=== PATIENT | female | born 1940 | race Caucasian/White ===

== ENCOUNTER 2018-06-22 12:07 | Day surgery (SDC) | payer OTHER ==
--- OUTSIDE RECORDS SUMMARY | 2018-06-22 12:12 | XMS REPORT | Continuity of Care Document ---
:1940 Author Organization Interface Problems Problem Status Onset Classification Date Comments Source Date Reported Syncope and Active 01/11/20 Problem 10/20/2015 Data migrated [facility] collapse<sup>2 14 from [facility] </sup> Centricity on 04/01/15. Benign breast Resolved Problem 10/20/2015 [facility] lumps [facility] Chronic Active Problem 10/20/2015 Data migrated [facility] obstructive from [facility] lung Centricity on disease<sup>1< 04/01/15. /sup> Dizziness Resolved Problem 10/20/2015 [facility] Medications Medication Details Route Status Patient Ordering Order Source Instructions Provider Date Allergies, Adverse Reactions, Alerts Substance Category Reaction Severity Reaction Status Date Comments Source type Reported penicillins Assertion Drug Active Data [facility] <sup>1</sup allergy migrated [facility] > from [employer] on 06/01/15. Originally documented as PCN. sulfa Assertion Drug Active Data [facility] drugs<sup>2 allergy migrated [facility] </sup> from [employer] on 06/01/15. Originally documented as SULFA. Immunizations Immunization Date Given Site Status Last Updated Comments Source Results Order Results Value Reference Date Interpretation Comments Source Name Range Chest w Chest w Chest CT with contrast, October 17, 2015. 10/17 - [facility] contrast contrast /2014 - [place] CT CT HISTORY: 75-year-old female with anorexia. Recent chest radiographs have shown a nodule in the right upper lobe which has become more conspicuous which prompted this chest CT. Read by: Linda Anaya MD Dictated Date/time: 10/17/15 19:48 Electronically Signed by: Linda Anaya MD 10/17/15 20:13 FINAL REPORT TECHNIQUE: The chest was scanned at 1.25 mm thin slices following the intravenous administration of 100 cc Omnipaque 300 contrast, with coronal, sagittal, and axial MIP reformatted images provided. Grant elation is made with the recent chest radiograph from October 10, 2015. FINDINGS: The heart is not enlarged. There is a trace dependent pericardial effusion. Mixed atherosclerotic plaque is scattered throughout the thoracic aorta and extends into the left subclavian artery which is s lightly narrowed beyond its takeoff from the aortic arch. The ascending aorta and pulmonary trunk do not measure enlarged. Calcification is identified in the LAD coronary artery. Note is made of subcentimeter mediastinal and hilar lymph nodes. Limited imaging through the upper abdomen shows abundant mixed atherosclerotic plaque with ulcerative lesions in the abdominal aorta. On the lowermost slices, the abdominal aorta is ectatic measuring up to 26 mm but is incompletely included on this study. The solid organs of the upper abdomen are not otherwise adequately opacified to appropriately assess. There is abundant centrilobular emphysema with an upper lung predilection. There is a spiculated, bilobed mass in the right upper lobe seen on axial images 51-70 and well seen on sagittal image 51. It m easures a total of 3 cm in length and up to 1.3 cm in transverse dimension as seen on axial image 66 and sagittal image 51. It is located adjacent to a bulla and spiculations from this lesion extends to the pleural surface anteriorly which is tethered. There is abundant biapical scarring. Additional small 2 to 5 mm pulmonary nodules are identified in the right lower lobe on axial image 148 and in the left upper lobe on axial images 31, 36, and 74. No pleural effusions are identified. The bones are demineralized. There are degenerative changes of the thoracic spine with curvature. No definite lytic destructive or blastic skeletal lesions are identified. IMPRESSION: 1. There is a spiculated, bilobed mass in the right upper lobe measuring 3 x 1.3 cm. It is located adjacent to a bulla and is tethered to the anterior pleural space. This is most worrisome for a primary bronchogenic carcinoma and corresponds to the visualized nodule on the recent chest radiograph. Consider further evaluation with tissue sampling and/ or PET/CT. 2. There are a few additional small pulmonary nodules scattered in the lungs bilaterally ranging in size from 2 to 5 mm which are nonspecific. Pulmonary metastases are not excluded. 3. Abundant centrilobular emphysema. 4. Abundant mixed atherosclerotic plaque in the thoracic aorta, left subclavian artery, and involving the incompletely included abdominal aorta. The abdominal aorta is ectatic and contains ulcerative le sions but is incompletely included on this study. Consider further evaluation with dedicated abdomen and pelvis CT as clinically warranted. 5. Calcification of the LAD coronary artery. Chest 2 Chest 2 EXAM: XR CHEST 2 VIEWS 10/10 - [facility] views DX views DX /2014 - [place] DATE: 2015-10-10 16:56:00 Read by: Dasia Aguilera MD Dictated Date/time: 10/11/15 15:18 Electronically Signed by: Dasia Aguilera MD 10/11/15 15:21 FINAL REPORT INDICATION: anorexia COMPARISON: Chest 2 views January 10, 2014 TECHNIQUE: Frontal and lateral chest radiographs DISCUSSION: The linear opacities in the right upper lobe felt to represent scarring on the prior exam are slightly more conspicuous with a questionable nodular appearance overlying the right second ante rior rib. The linear component is slightly more curvilinear when compared the prior exam and an underlying cavity is not excluded. Additional biapical pleural thickening and scarring is noted. Lungs are mildly hyperinflated. The cardiac silhouette is unremarkable. Pectus excavatum deformity. Degenerative changes in the spine. The bones are osteopenic. Pulmonary vascularity is normal. The cardiomediastinal silhouette is unremarkable. No acute bony abnormality is identified. IMPRESSION: The opacities in the right upper lobe felt to represent scarring on the prior exam are slightly more conspicuous on the current exam. An underlying cavity or contiguous area of nodularity is not exclude d. Dedicated chest CT is recommended for better evaluation. Vital Signs Vital Sign Value Date Comments Source Encounters Location Location Encounter Encounter Reason Attending ADM DC Status Source Details Type Number For Provider Date Date Visit [facility] Outpt Diag [id number] [place] 10/10 10/11 [facility] Outpatient Services [facility] Outpt Diag [id number] [place] 10/17 10/18 [facility] Outpatient Services [facility] Outpatient [id number] [place] 11/17 [facility] /2015 [place] [facility] [id number] NOHEMY 01/21 [facility] /2016 [place] Procedures Procedure Code Date Perfomer Comments Source
--- OUTSIDE RECORDS SUMMARY | 2018-06-22 12:12 | XMS REPORT | Summary of Care ---
:1940 Author Organization [facility] Outpatient Imaging - [facility] Address [address] [place] [address]- Encounter HQ Encntr_alitiffanie(FIN) [id number] Date(s): 10/10/15 - 10/10/15 [facility] Outpatient Imaging - [address] [place] [address]- Discharge Disposition: Home Attending Physician: Myles Yanes MD Vital Signs No data available for this section Problem List Condition Effective Dates Status Health Status Informant Benign breast lumps(Confirmed) Resolved Chronic obstructive lung disease1 Active Dizziness(Confirmed) Resolved Syncope and collapse2 01/10/14 Active 1Data migrated from GE [employer] on 04/01/15.2Data migrated from [employer] on 04/01/15. Allergies, Adverse Reactions, Alerts Substance Reaction Severity Status penicillins1 Active sulfa drugs2 Active 1Data migrated from [employer] on 06/01/15. Originally documented as PCN.2Data migrated from [employer] on 06/01/15. Originally documented as SULFA. Medications No data available for this section Results No data available for this section Immunizations No data available for this section Procedures No data available for this section Social History Social History Type Response Substance Abuse Use: None. Exercise Exercise duration: 30. Exercise frequency: 1-2 times/week. Exercise type: Walking. Employment/School Status: Retired. Alcohol Never, Frequency: Daily. Smoking Status Never smoker; Exposure to Tobacco Smoke None; Cigarette Smoking Last 365 Days No; Reg Smoking Cessation Counseling No Assessment and Plan No data available for this section
--- OUTSIDE RECORDS SUMMARY | 2018-06-22 12:12 | XMS REPORT | Summary of Care ---
:1940 Author Organization [facility] Outpatient Imaging - [facility] Address [address] [place] [address]- Encounter HQ Tatontr_alitiffanie(FIN) [id number] Date(s): 10/17/15 - 10/17/15 [facility] Outpatient Imaging - [address] [place] [address]- Discharge Disposition: Home Attending Physician: Myles Yanes [...]
[2018-06-22] MEDS ORDERED: NA CHLORIDE 0.9% 500 ML ONE (12:25)
[2018-06-22] MEDS ORDERED: BUPIVACAINE 0.25% PF 10 ML VIAL ONE (12:26)
[2018-06-22] MEDS ORDERED: TETRACAINE HCL 0.5% 2ML OPTH ONE (12:26)
[2018-06-22] MEDS ORDERED: CYCLOPENTOLATE 1% OPTH 2 ML ONE (12:26)
[2018-06-22] MEDS ORDERED: LIDOCAINE 2% INJ, MPF 2 ML 2 ML ONE (12:27)
[2018-06-22] MEDS ORDERED: PHENYLEPHRINE 10% OPTH 5ML ONE (12:27)
[2018-06-22] MEDS ORDERED: CYCLOPENTOLATE 1% OPTH 2 ML OPTH ONE ×2 (12:39→12:46)
[2018-06-22] MEDS ORDERED: PHENYLEPHRINE 10% OPTH 5ML OPTH ONE ×2 (12:39→12:46)
[2018-06-22] MEDS ORDERED: NS 0.9% VIAL 10 ML ONE (12:39)
[2018-06-22] MEDS: BALANCED SALT IRRIG PLAIN 500 ML BTL IRR ONE ×2 (12:56→13:32)
[2018-06-22] MEDS: EPINEPHRINE/PF 1 MG/ML AMP ONE ×2 (12:56→13:32)
[2018-06-22] MEDS: DUOVISC 1 KIT OPTH ONE ×2 (12:56→13:32)
[2018-06-22] MEDS: MOXIFLOXACIN HCL 10 DROPS/ML **OR USE OPTH ONE ×2 (12:56→13:32)
[2018-06-22] MEDS ORDERED: PROPOFOL 200 MG/20 ML VIAL IV ONE (13:16)
[2018-06-22] MEDS ORDERED: LIDOCAINE 1% MPF 2 ML AMPULE ONE (13:22)
--- NOTE | 2018-06-22 14:11 | P.BOP ---
Preoperative diagnosis: Nuclear sclerosis and posterior subcapsular cataract OD Postoperative diagnosis: Same Primary procedure: Phacoemulsification with IOL OD Estimated blood loss: None Anesthesia: Local (Subtenon's infusion with anesthesia for cataract surgery) Complications: None Implants: [id number] +23.0 Transferred to: Other (Day surgery) Condition: Good
[2018-06-22 14:32] VITALS: BP 148/64; TEMP 97.3; O2SAT 100
--- NOTE | 2018-06-23 00:52 | OP ---
Date of Procedure: 06/22/2018 Surgeon: Thuy Hansen MD Anesthesiologist: Clarisse Ba CRNA and Brody Ellis M.D. Preoperative Diagnosis: Nuclear sclerotic and posterior subcapsular cataract, right eye. Procedure: Phacoemulsification with intraocular lens, right eye. Anesthesia: Per cataract surgery. Complications: None. Description Of Procedure: In day surgery, the patient was prepped with Betadine and draped. A conju nctival incision was made in the inferior nasal quadrant with Joan scissors. A sub-Tenon block c onsisting of a 1:1 mixture of 2% Xylocaine and 0.25% bupivacaine was placed through the conjunctival incision with a blunt cannula. A Honan balloon was placed over the eye and the patient was transferr ed to the operating room. In the operating room the patient was prepped and draped in the usual sterile fashion for ophthalmic surgery. A lid speculum was placed in the OD. Two paracentesis sites were made superiorly and infer iorly in the limbal cornea. Viscoat was placed in the anterior chamber and a crescent blade was used to make a corneal groove and tunnel, and a keratome was used to enter the anterior chamber. Provisc was placed in the anterior chamber and a 360 degree capsulotomy was performed with a cystitome. The lens was hydrodissected with BSS and rotated freely. The lens was removed with a stop and chop tech nique. A 15.84 phaco CDE was used to remove the lens. Residual cortex was removed with the irrigati on and aspiration. Provisc was placed in the capsular bag. A ZCB00 +23.0 diopter lens was placed in the capsular bag without complications. Irrigation and aspiration was used to remove residual visco elastic. The paracentesis sites were hydrated with BSS. The wound and paracentesis sites were inspe cted and found to be watertight. Vigamox 0.07 cc was placed intracamerally at the end of the procedu re. The eye was irrigated with balanced salt solution. The eye was patched with a soft cotton patch and Martel metal shield. The patient was returned to day surgery in good condition. Comments: 1:5000 epinephrine was placed in the eye prior to Viscoat. Discharge Instructions: Ms. Chamorro is discharged to home in good condition and is to follow up with Dr. Hansen in the morning. JOVITA/ROSELIA Voice ID: [id number] Report ID: [id number]
== END 2018-06-22 14:35 | disposition home or self-care (01) ==
LOC: OR 12:07
PROVIDERS: ATTEND Ophthalmology Retina Specialist
PROC: 08RJ3JZ Replacement of Right Lens with Synthetic Substitute, Percutaneous Approach (ICD-10-PCS; principal; 2018-06-22 12:00)
DX: H25.11 Age-related nuclear cataract, right eye (principal); H25.041 Posterior subcapsular polar age-related cataract, right eye; I10 Essential (primary) hypertension; Z87.891 Personal history of nicotine dependence; Z85.118 Personal history of other malignant neoplasm of bronchus and lung; Z92.3 Personal history of irradiation; Z88.0 Allergy status to penicillin; Z88.2 Allergy status to sulfonamides; Z88.6 Allergy status to analgesic agent
CPT/HCPCS: 66984; J0171; J2001; J3490

== ENCOUNTER 2018-09-07 11:06 | Day surgery (SDC) | payer OTHER ==
--- OUTSIDE RECORDS SUMMARY | 2018-09-07 11:09 | XMS REPORT | Continuity of Care Document ---
[...] <sup>1</sup allergy migrated [facility] > from [employer] on 06/01/15. Originally documented as PCN. sulfa Assertion Drug Active Data [facility] drugs<sup>2 allergy migrated [facility] </sup> from [employer] on 06/01/15. Originally documented as SULFA. Immunizations Immunization Date Given Site Status Last Updated Comments Source Results Order Results Value Reference Date Interpretation Comments Source Name Range Chest w Chest w Chest CT with contrast, October 17, 2015. 10/17 - [facility] contrast contrast /2014 - [place] CT CT HISTORY: 75-year-old female with anorexia. [...] [facility] views DX views DX /2014 - [place] DATE: 2015-10-10 16:56:00 Read by: Dasia Aguilera [...] Type Number For Provider Date Date Visit [facility] Outpt Diag [id number] [place] 10/10 10/11 [facility] Outpatient Services [facility] Outpt Diag [id number] [place] 10/17 10/18 [facility] Outpatient Services [facility] Outpatient [id number] [place] 11/17 [facility] /2015 [place] [facility] [id number] NOHEMY 01/21 [facility] /2016 [place] Procedures Procedure Code Date Perfomer Comments Source
[2018-09-07] MEDS ORDERED: NA CHLORIDE 0.9% 500 ML ONE (11:26)
[2018-09-07] MEDS ORDERED: Phenylephrine HCl 10 MG/ML 1 ML VIAL ONE (11:26)
[2018-09-07] MEDS ORDERED: NS 0.9% VIAL 10 ML ONE (11:38)
[2018-09-07] MEDS ORDERED: EPINEPHRINE/PF 1 MG/ML AMP ONE ×2 (11:38→13:54)
[2018-09-07] MEDS ORDERED: BALANCED SALT IRRIG PLAIN 500 ML BTL IRR ONE (11:39)
[2018-09-07] MEDS ORDERED: MOXIFLOXACIN HCL 10 DROPS/ML **OR USE OPTH ONE (11:39)
[2018-09-07] MEDS ORDERED: DUOVISC 1 KIT OPTH ONE (11:39)
[2018-09-07] MEDS: CYCLOPENTOLATE 1% OPTH 2 ML ONE ×3 (11:50→12:00)
[2018-09-07] MEDS: PHENYLEPHRINE 10% OPTH 5ML ONE ×3 (11:50→12:00)
[2018-09-07] MEDS: TETRACAINE HCL 0.5% 2ML OPTH ONE ×2 (11:51→13:04)
[2018-09-07] MEDS: LIDOCAINE 2% MPF 5 ML VIAL ONE ×2 (11:51→13:05)
[2018-09-07] MEDS: BUPIVACAINE 0.25% PF 10 ML VIAL ONE ×2 (11:52→13:05)
[2018-09-07] MEDS ORDERED: LIDOCAINE 1% MPF 5 ML VIAL ONE (12:39)
[2018-09-07] MEDS ORDERED: PROPOFOL 200 MG/20 ML VIAL IV ONE (12:39)
[2018-09-07] MEDS ORDERED: EPINEPHRINE/PF 1 MG/ML AMP IV ONE (13:30)
--- NOTE | 2018-09-07 13:49 | P.BOP ---
Preoperative diagnosis: Nuclear sclerotic cataract OS Postoperative diagnosis: Same Primary procedure: Phacoemulsification with IOL OS Estimated blood loss: None Anesthesia: Local (Subtenon's infusion with anesthesia for cataract surgery) Complications: None Implants: ZCB00 +22.0 Transferred to: Other (Day surgery) Condition: Good
[2018-09-07 13:58] VITALS: BP 126/65; TEMP 97.4; O2SAT 96
--- NOTE | 2018-09-08 00:45 | OP ---
Surgeon: Thuy Hansen MD Anesthesiologist: Clarisse Ramsay CRNA and Tramaine Negrete MD Preoperative Diagnosis: Nuclear sclerotic cataract, left eye. Operation Performed: Phacoemulsification with intraocular lens implant, left eye. Anesthesia: Per Cataract Surgery. Complications: None. Description Of Procedure: In day surgery, the patient was prepped with Betadine and draped. A lid speculum was placed in the left eye. A conjunctival incision was made in the inferior nasal quadrant with Joan scissors. A 1:1 mixture of 2% Xylocaine and 0.25% bupivacaine was placed around the globe. Approximately 5 mL were used. A Honan balloon was placed on the eye for approximately 5 minutes. The patient was brought into the operative room. The patient was prepped and draped in the usual sterile fashion for ophthalmic surgery. A lid speculum was placed in the eye. Paracentesis was made superiorly and inferiorly in the limbal cornea. Viscoat was placed in the anterior chamber. A crescent blade was used to create a tunnel incision in the temporal cornea and a keratome was used to enter the anterior chamber. Provisc was placed in the eye and 360 degree capsulotomy was performed. The lens was hydrodissected with balanced salt solution and moved freely. The lens was removed in a stop and chop fashion. 9.92 CDE was required. Irrigation and aspiration were used to remove residual cortex. Provisc was placed in the eye. A ZCB00 +22.0 diopter lens was placed in the capsular bag without complications. Irrigation and aspiration were used to remove residual viscoelastic. The paracentesis sites were hydrated with balanced salt solution and the wound and paracentesis sites were inspected and found to be watertight. Intracameral Vigamox 0.07 cc was injected at the end of the procedure. The eye was irrigated with balanced salt solution. The eye was patched with a soft cotton patch and Martel metal shield. The patient was returned to day surgery in good condition. Comments: 1:5000 epinephrine was placed in the anterior chamber prior to Viscoat. Discharge Instructions: Ms. Chamorro is discharged to home in good condition and is to follow up with Dr. Hansen in the morning. JOVITA/ROSELIA Voice ID: [id number] Report ID: [id number] ZOYA
== END 2018-09-07 14:15 | disposition home or self-care (01) ==
LOC: OR 11:06
PROVIDERS: ATTEND Ophthalmology Retina Specialist
PROC: 08RK3JZ Replacement of Left Lens with Synthetic Substitute, Percutaneous Approach (ICD-10-PCS; principal; 2018-09-07 11:45)
DX: H25.12 Age-related nuclear cataract, left eye (principal); I10 Essential (primary) hypertension; J44.9 Chronic obstructive pulmonary disease, unspecified; Z85.118 Personal history of other malignant neoplasm of bronchus and lung; Z87.891 Personal history of nicotine dependence; Z88.0 Allergy status to penicillin; Z88.2 Allergy status to sulfonamides; Z88.8 Allergy status to other drugs, medicaments and biological substances; Z91.048 Other nonmedicinal substance allergy status
CPT/HCPCS: 66984; J0171 ×3; J2370; J2704

== ENCOUNTER 2019-01-06 06:55 | Day surgery (SDC) | payer OTHER ==
--- NOTE | 2019-01-05 11:07 | RAD REPORT ---
EXAM DESCRIPTION: Yoselyn De Santiago And Lat (2 Views)01/05/2019 10:57 am CLINICAL HISTORY: Lung cancer. Preop COMPARISON: February 2018 FINDINGS: Right upper lobe dense opacity is without significant change from the prior exam. Remainder of the lungs appear clear The lungs are moderately to markedly hyperaerated consistent with COPD. The heart is normal size IMPRESSION: COPD Right upper lobe dense opacity without significant change from from February 2018
[2019-01-05 11:10] LABS: Absolute Lymphocytes (CBC) 1.2 K/uL (0.7-4.9); Absolute Monocytes 0.6 K/uL (0.1-1.3); Absolute Neutrophil 3.7 K/uL (1.8-8.0); Basophils % 1.2 % (0-1.3); Eosinophils % 4.7 % (0-4.4); Hematocrit 42.8 % (36.0-45.0); Lymphocytes % 20.5 % (15.3-44.8); MPV 9.4 fL (7.6-11.3); Monocytes % 9.9 % (3.3-12.3); RBC Red Blood Cell Count 4.34 M/uL (3.86-4.86)
[2019-01-05 11:17] LABS: Potassium 4.1 mmol/L (3.5-5.1)
[2019-01-05 11:40] LABS: Protime INR 0.96
--- OUTSIDE RECORDS SUMMARY | 2019-01-06 06:57 | XMS REPORT | Continuity of Care Document ---
[...] <sup>1</sup allergy migrated [facility] > from [facility] [employer] on 06/01/15. Originally documented as PCN. sulfa Assertion Drug Active Data [facility] drugs<sup>2 allergy migrated [facility] </sup> from [employer] on 06/01/15. Originally documented as SULFA. Immunizations Immunization Date Given Site Status Last Updated Comments Source Results Order Results Value Reference Date Interpretation Comments Source Name Range Chest w Chest w Chest CT with contrast, October 17, 2015. 10/17 - [facility] contrast contrast /2014 - [place] CT CT HISTORY: 75-year-old female with anorexia. [...] OPID views DX views DX /2014 - [place] DATE: 2015-10-10 16:56:00 Read by: Dasia Aguilera [...] Type Number For Provider Date Date Visit [facility] Outpt Diag [id number] [place] 10/10 10/11 [facility] Outpatient Services [facility] Outpt Diag [id number] [place] 10/17 10/18 [facility] Outpatient Services [facility] Outpatient [id number] [place] 11/17 [facility] /2015 [place] Outpatient [id number] NOHEMY 01/21 [facility] /2016 [place] Procedures Procedure Code Date Perfomer Comments Source
[2019-01-06] MEDS ORDERED: NA CHLORIDE 0.9% 500 ML ONE (07:41)
[2019-01-06] MEDS ORDERED: LIDOCAINE 1% 20 ML MDV ONE ×2 (08:26→09:48)
[2019-01-06] MEDS ORDERED: HEPA 1000U/500MLS 1,000 UNIT/500 ML BAG IV ONE ×2 (08:26→10:15)
[2019-01-06] MEDS ORDERED: FENTANYL CITR 100 MCG/2 ML ONE (09:10)
[2019-01-06] MEDS ORDERED: MIDAZOLAM HCL 2 MG/2 ML INJ ONE (09:10)
[2019-01-06] MEDS ORDERED: HEPARIN 5000 UNIT/ML 1 ML VIAL ONE (09:48)
[2019-01-06] MEDS ORDERED: PRASUGREL (EFFIENT) 10 MG TAB ONE (11:20)
[2019-01-06 13:07] VITALS: TEMP 98
--- NOTE | 2019-01-06 13:50 | OP ---
Surgeon: Ghassan Bazzi MD Primary Care Physician: Tera Majano M.D. Procedure: Abdominal angiogram with runoffs and percutaneous angioplasty of the right iliac artery u sing a stent, which was successful. A 99% right ostial iliac stenosis was dilated to less than 10% s tenosis using a 6.0 x 29 Omnilink balloon expanding stent. Procedure Findings: The patient has a 3 cm diameter abdominal aortic aneurysm. The right iliac is s everely stenotic. The left iliac and femoral arteries are tortuous, diffusely mildly diseased. No s ignificant stenosis. The left superficial femoral artery has diffuse disease in it, up to 80% stenos is. The distal vessels on both sides are free of any significant stenosis and after the angioplasty, the right iliac stenosis was very successfully dilated. It was at the junction of the iliac and dis gayathri aorta. Procedure In Detail: The patient was brought to the cardiac culture media laboratory assistant in a fasting state, prepared, d raped in usual sterile fashion, sedated with Versed and fentanyl. The left femoral artery was entere d first. A needle was used, 4-Mongolian sheath was placed. We were able to put a guidewire into the ao rta and with this we were able to place a pigtail into the aorta for the first angiogram. We then to ok a second angiogram at an angled view that better showed the lesion, very tight, right aortoiliac j unction stenosis, heavily calcified, more than 90% stenosed. We decided it was unable to cross this lesion from the patient's left side, so we entered the right iliac artery. We placed a 6-Mongolian ann th. We were able to cross the lesion with a Terumo Glidewire. We could not pass a stent or even a 4 -Mongolian balloon to pre dilate because of how tight it was. We were able to get a 4-Mongolian coronary a rtery diagnostic catheter to cross the lesion. We then discarded the Glidewire, put an exchange mark th J-wire into the aorta, across the lesion in the right iliac, withdrew the coronary catheter, pre-d ilated the lesion with 4.0 x 40 balloon and inflated to 10 atmospheres. We were then able to pass th e stent, although even then it was difficult, and once the stent was in place, we inflated it to 12 a tmospheres. It took a full 12 atmospheres to dilate it. No complications. Angiographic result was excellent after the wires were removed. Angiograms were done of the left common femoral artery and r ight common femoral artery. The left common femoral artery, we elected to close using manual pressur e. As only a 4-Mongolian device was placed on the right, we closed that arteriotomy using an Angio-Seal device. She will be loaded with Effient 30 mg. She had heparin 5000 units given during the procedu re, and she will take Plavix, aspirin, and Trental as an outpatient. She should also be started on a statin drug. We will like to start her on Lipitor 40 mg a day. CARLIE/ROSELIA Voice ID: [id number] Report ID: [id number]
[2019-01-06 16:13] VITALS: BP 114/64; O2SAT 98
== END 2019-01-06 16:27 | disposition home or self-care (01) ==
LOC: CCL 06:55
PROVIDERS: ATTEND Internal Medicine
DX: I70.203 Unspecified atherosclerosis of native arteries of extremities, bilateral legs (principal); I71.4 Abdominal aortic aneurysm, without rupture; E78.5 Hyperlipidemia, unspecified; I10 Essential (primary) hypertension; I65.23 Occlusion and stenosis of bilateral carotid arteries; F17.211 Nicotine dependence, cigarettes, in remission; Z79.899 Other long term (current) drug therapy
CPT/HCPCS: 85025; 80048; 36415; 85610; 85730; 71046; 36200; 75630; 37221; C1893; C1769; C1725; J1644; J2250; J3010

== ENCOUNTER 2019-08-31 11:29 | Observation (INO) | payer OTHER ==
[2019-08-31 13:54] LABS: Urine Blood NEGATIVE (NEG); Urine Glucose NEGATIVE (NEG)
[2019-08-31 13:54] LABS: Urine Bacteria 20-50 /HPF (<20); Urine Culture Reflex Order REFLEXED; Urine RBC <5 /HPF (NONE SEEN)
[2019-08-31 13:55] LABS: Urine Protein NEGATIVE (NEG); Urine pH 5.5 (5.0-7.0)
--- NOTE | 2019-08-31 14:38 | EDPHYS ---
Physician Documentation [facility] Name: Dot Chamorro Age: 79 yrs Sex: Female : 1940 Arrival Date: 08/31/2019 Time: 11:31 Bed 26 Private MD: Migue Majano C ED Physician Duke Bruno HPI: 08/31 14:29 This 79 yrs old Female presents to ER via Ambulatory with complaints of reginald Urinary Problem, Vomiting. 14:29 The patient presents to the emergency department with nausea. Onset: The reginald symptoms/episode began/occurred 3 day(s) ago. Possible causes: unknown. The symptoms are aggravated by nothing. The symptoms are alleviated by nothing. Associated signs and symptoms: The patient has no apparent associated signs or symptoms. Severity of symptoms: At their worst the symptoms were mild in the emergency department the symptoms are unchanged. The patient has not experienced similar symptoms in the past. Historical: - Allergies: 11:40 PENICILLINS; sv 11:40 Sulfa (Sulfonamide Antibiotics); sv 11:40 Tetanus Vaccines \T\ Toxoid; sv - Home Meds: 11:40 metoprolol tartrate 25 mg Oral tab 1 tab 2 times per day [Active]; furosemide 40 mg sv Oral tab 1 tab once daily [Active]; Ranitidine 1 mg BID Oral [Active]; alendronate sodium-cholecalciferol(vitamin D3) oral 70mg weekly on Tues oral [Active]; aspirin 81 mg Oral chew 1 tab once daily [Active]; calcium-vitamin D3-vitamin K oral oral daily [Active]; nitrofurantoin oral 1 cap BID oral [Active]; - PMHx: 11:40 COPD; Lung Cancer (in remission); UTI; sv - PSHx: 11:40 None; sv - Immunization history:: Flu vaccine is not up to date. - Social history:: Smoking status: unknown. - Family history:: not pertinent. - Ebola Screening: : No symptoms or risks identified at this time. ROS: 14:29 Constitutional: Negative for fever, chills, and weight loss, Eyes: Negative for injury, reginald pain, redness, and discharge, ENT: Negative for injury, pain, and discharge, Neck: Negative for injury, pain, and swelling, Cardiovascular: Negative for chest pain, palpitations, and edema, Respiratory: Negative for shortness of breath, cough, wheezing, and pleuritic chest pain, Abdomen/GI: Negative for abdominal pain, nausea, vomiting, diarrhea, and constipation, Back: Negative for injury and pain, : Negative for injury, bleeding, discharge, and swelling, MS/Extremity: Negative for injury and deformity, Skin: Negative for injury, rash, and discoloration, Psych: Negative for depression, anxiety, suicide ideation, homicidal ideation, and hallucinations, Allergy/Immunology: Negative for hives, rash, and allergies, Endocrine: Negative for neck swelling, polydipsia, polyuria, polyphagia, and marked weight changes, Hematologic/Lymphatic: Negative for swollen nodes, abnormal bleeding, and unusual bruising. 14:29 Neuro: Positive for dizziness, near syncope, weakness. Exam: 14:29 Constitutional: This is a well developed, well nourished patient who is awake, alert, reginald and in no acute distress. Head/Face: Normocephalic, atraumatic. Eyes: Pupils equal round and reactive to light, extra-ocular motions intact. Lids and lashes normal. Conjunctiva and sclera are non-icteric and not injected. Cornea within normal limits. Periorbital areas with no swelling, redness, or edema. ENT: Nares patent. No nasal discharge, no septal abnormalities noted. Tympanic membranes are normal and external auditory canals are clear. Oropharynx with no redness, swelling, or masses, exudates, or evidence of obstruction, uvula midline. Mucous membranes moist. Neck: Trachea midline, no thyromegaly or masses palpated, and no cervical lymphadenopathy. Supple, full range of motion without nuchal rigidity, or vertebral point tenderness. No Meningismus. Chest/axilla: Normal chest wall appearance and motion. Nontender with no deformity. No lesions are appreciated. Cardiovascular: Regular rate and rhythm with a normal S1 and S2. No gallops, murmurs, or rubs. Normal PMI, no JVD. No pulse deficits. Abdomen/GI: Soft, non-tender, with normal bowel sounds. No distension or tympany. No guarding or rebound. No evidence of tenderness throughout. Back: No spinal tenderness. No costovertebral tenderness. Full range of motion. Female : Normal external genitalia. Skin: Warm, dry with normal turgor. Normal color with no rashes, no lesions, and no evidence of cellulitis. MS/ Extremity: Pulses equal, no cyanosis. Neurovascular intact. Full, normal range of motion. Neuro: Awake and alert, GCS 15, oriented to person, place, time, and situation. Cranial nerves II-XII grossly intact. Motor strength 5/5 in all extremities. Sensory grossly intact. Cerebellar exam normal. Normal gait. Psych: Awake, alert, with orientation to person, place and time. Behavior, mood, and affect are within normal limits. 14:29 Respiratory: the patient does not display signs of respiratory distress, Respirations: normal, Breath sounds: decreased breath sounds, that are mild, rhonchi, wheezing: expiratory Respiratory rate: 16 Vital Signs: 11:40 BP 126 / 99; Pulse 61; Resp 16; Temp 98.2; Pulse Ox 97% ; Weight 47.17 kg; Height 5 ft. sv 7 in. (170.18 cm); 15:53 BP 140 / 67; Pulse 70; Resp 18; Temp 98; Pulse Ox 100% on R/A; mg2 16:45 BP 139 / 80; Pulse 69; Resp 18; Pulse Ox 100% on R/A; mg2 17:59 BP 135 / 60; Pulse 71; Resp 17; Temp 98; Pulse Ox 100% on R/A; Pain 0/10; mg2 11:40 Body Mass Index 16.29 (47.17 kg, 170.18 cm) sv MDM: 13:30 Patient medically screened. [facility] 14:32 Data reviewed: vital signs, nurses notes, lab test result(s), EKG, radiologic studies, [facility] CT scan, plain films. 08/31 13:29 Order name: Urine Microscopic Only; Complete Time: 14:26 mg2 08/31 13:47 Order name: Urine Dipstick--Ancillary (enter results); Complete Time: 14:26 ss 08/31 13:57 Order name: Urine Culture EDUT 08/31 14:29 Order name: Basic Metabolic Panel [facility] 08/31 14:29 Order name: CBC with Diff; Complete Time: 16:06 reginald 08/31 14:29 Order name: LFT's [facility] 08/31 14:29 Order name: Magnesium [facility] 08/31 14:29 Order name: NT PRO-BNP [facility] 08/31 14:29 Order name: PT-INR; Complete Time: 16:06 [facility] 08/31 14:29 Order name: Troponin (emerg Dept Use Only) [facility] 08/31 14:29 Order name: XRAY Chest (1 view); Complete Time: 16:06 [facility] 08/31 14:29 Order name: US Carotid Artery Bilateral [facility] 08/31 16:31 Order name: Phosphorus [facility] 08/31 16:51 Order name: Phosphorus; Complete Time: 17:10 EDUT 08/31 13:29 Order name: Urine Dipstick-Ancillary (obtain specimen); Complete Time: 13:30 [facility] 08/31 14:29 Order name: EKG; Complete Time: 14:30 [facility] 08/31 14:29 Order name: Cardiac monitoring; Complete Time: 15:48 [facility] 08/31 14:29 Order name: EKG - Nurse/Tech; Complete Time: 14:58 [facility] 08/31 14:29 Order name: IV Saline Lock; Complete Time: 15:48 [facility] 08/31 14:29 Order name: CT Head Brain wo Cont; Complete Time: 16:06 [facility] 08/31 15:42 Order name: US; Complete Time: 16:06 [facility] 08/31 14:29 Order name: Labs collected and sent; Complete Time: 15:48 [facility] 08/31 14:29 Order name: O2 Per Protocol; Complete Time: 15:49 [facility] 08/31 14:29 Order name: O2 Sat Monitoring; Complete Time: 15:49 [facility] Administered Medications: 15:48 Drug: NS 0.9% 500 ml Route: IV; Rate: bolus; Site: left forearm; mg2 16:17 Follow up: Response: No adverse reaction; IV Status: Completed infusion; IV Intake: mg2 500ml 15:48 Drug: Rocephin 1 grams Route: IV; Rate: per protocol; Site: left forearm; mg2 15:57 Follow up: Response: No adverse reaction; IV Status: Completed infusion mg2 17:07 Drug: Potassium Chloride 20 mEq Route: IV; Rate: per protocol; Site: left forearm; mg2 18:53 Follow up: Response: No adverse reaction; IV Status: Infusion continued upon admission mg2 17:07 Drug: Potassium Effervescent Tablet 50 mEq Route: PO; mg2 18:00 Follow up: Response: No adverse reaction mg2 17:08 Drug: NS 0.9% with KCl 20 mEq/L 1000 ml Route: IV; Rate: 125 ml/hr; Site: left forearm; mg2 18:45 Follow up: Response: No adverse reaction; IV Status: Infusion continued upon admission; mg2 IV Intake: 200ml 17:28 Drug: Xopenex 2.5 mg Route: Inhalation; mg2 17:28 Drug: AtroVENT Aerosol 0.5 mg Route: Inhalation; mg2 17:28 Drug: Magnesium Sulfate 1 grams Route: IVPB; Infused Over: 1 hrs; Site: left forearm; mg2 18:13 Follow up: IV Status: Completed infusion mg2 17:29 Drug: SOLU-Medrol 125 mg Route: IVP; Site: left forearm; mg2 18:17 Follow up: Response: No adverse reaction mg2 Disposition: 08/31/19 14:33 Hospitalization ordered by Migue Majano for Inpatient Admission. Preliminary diagnosis are Urinary tract infection, site not specified, Syncope and collapse, Chronic obstructive pulmonary disease, unspecified, Anemia, unspecified, Hypokalemia, Hypomagnesemia, Fever, unspecified. - Bed requested for Telemetry/MedSurg (Inpatient). - Status is Inpatient Admission. mg2 - Condition is Fair. - Problem is new. - Symptoms have improved. UTI on Admission? Yes Signatures: Dispatcher [employer] EDMS Duyen Holder Stephanie, RN RN Duke Cummins MD MD cha Gardose, Michele, RN RN mg2 Corrections: (The following items were deleted from the chart) 15:20 14:33 Hospitalization Ordered by A Melecio ISLAS for Inpatient Admission. Preliminary bd diagnosis is Urinary tract infection, site not specified; Syncope and collapse; Chronic obstructive pulmonary disease, unspecified. Bed requested for Telemetry/MedSurg (Inpatient). Status is Inpatient Admission. Condition is Fair. Problem is new. Symptoms have improved. UTI on Admission? Yes. reginald 16:07 15:20 08/31/2019 14:33 Hospitalization Ordered by A Melecio ISLAS for Inpatient Admission. reginald Preliminary diagnosis is Urinary tract infection, site not specified; Syncope and collapse; Chronic obstructive pulmonary disease, unspecified. Bed requested for Telemetry/MedSurg (Inpatient). Status is Inpatient Admission. Condition is Fair. Problem is new. Symptoms have improved. UTI on Admission? Yes. bd 16:31 16:07 08/31/2019 14:33 Hospitalization Ordered by A Melecio ISLAS for Inpatient Admission. reginald Preliminary diagnosis is Urinary tract infection, site not specified; Syncope and collapse; Chronic obstructive pulmonary disease, unspecified; Anemia, unspecified. Bed requested for Telemetry/MedSurg (Inpatient). Status is Inpatient Admission. Condition is Fair. Problem is new. Symptoms have improved. UTI on Admission? Yes. [facility] 16:43 16:31 08/31/2019 14:33 Hospitalization Ordered by A Melecio ISLAS for Inpatient Admission. reginald Preliminary diagnosis is Urinary tract infection, site not specified; Syncope and collapse; Chronic obstructive pulmonary disease, unspecified; Anemia, unspecified; Hypokalemia. Bed requested for Telemetry/MedSurg (Inpatient). Status is Inpatient Admission. Condition is Fair. Problem is new. Symptoms have improved. UTI on Admission? Yes. [facility] 18:33 16:43 08/31/2019 14:33 Hospitalization Ordered by A Melecio ISLAS for Inpatient Admission. mg2 Preliminary diagnosis is Urinary tract infection, site not specified; Syncope and collapse; Chronic obstructive pulmonary disease, unspecified; Anemia, unspecified; Hypokalemia; Hypomagnesemia; Fever, unspecified. Bed requested for Telemetry/MedSurg (Inpatient). Status is Inpatient Admission. Condition is Fair. Problem is new. Symptoms have improved. UTI on Admission? Yes. [facility]
[2019-08-31] MEDS ORDERED: NA CHLORIDE 0.9% 500 ML ONE (15:04)
[2019-08-31] MEDS ORDERED: CEFTRIAXONE/SWI 1gm 1 GM/10 ML SYR ONE (15:04)
--- NOTE | 2019-08-31 15:04 | RAD REPORT ---
EXAM DESCRIPTION: RAD - Chest Single View - 08/31/2019 2:46 pm CLINICAL HISTORY: Cough, shortness of breath COMPARISON: January 2019, March 2017 TECHNIQUE: AP portable chest image was obtained 1437 hours . FINDINGS: Spiculated parenchyma in the right apex has not changed. Patient has underlying interstiti al fibrotic change. No acute infiltrate, mass or failure. Heart and vasculature are normal. No measur able pleural effusion and no pneumothorax. No acute bony abnormality seen. No acute aortic findings s uspected. IMPRESSION: Chronic spiculated density right apex dating to at least 2016. No acute chest finding.
--- NOTE | 2019-08-31 15:05 | RAD REPORT ---
EXAM DESCRIPTION: CT - Head Brain Wo Cont - 08/31/2019 2:47 pm CLINICAL HISTORY: Dizziness, altered mental status COMPARISON: January 2013 TECHNIQUE: Axial 5 mm thick images of the head were obtained without IV contrast. All CT scans are performed using dose optimization technique as appropriate and may include automated exposure control or mA/KV adjustment according to patient size. FINDINGS: No intracranial hemorrhage, mass, edema or shift of mid-line structures. No acute infarcti on changes seen. No abnormal extra-axial fluid collections. Ventricles are normal. Atrophy and chroni c ischemic changes are present similar to comparison. Ventricles are in proportion to volume loss. Mastoid air cells and visualized portions of the paranasal sinuses are clear. No acute bony findings. IMPRESSION: Atrophy and chronic ischemic change similar to comparison. No acute finding.
--- NOTE | 2019-08-31 15:39 | RAD REPORT ---
EXAM DESCRIPTION: US - CP - 08/31/2019 3:22 pm CLINICAL HISTORY: DIZZINESS Headache, drowsiness COMPARISON: CAROTID ARTERY BILATERAL dated 01/08/2013 TECHNIQUE: Real-time sonographic evaluation of both carotid systems was performed. Doppler interroga tion was performed with waveform tracing bilaterally. FINDINGS: Normal high resistance waveforms are noted in both external carotid arteries. The common c arotid arteries and internal carotid arteries show normal low resistance waveforms. Mild focal hard plaquing is seen in both carotid bulbs. Peak systolic and end diastolic velocity valu es and the ICA/CCA ratios are in the non-hemodynamically significant range. Antegrade flow seen in both vertebral arteries. IMPRESSION: Mild focal hard plaquing is seen in both carotid bulbs. No evidence of a hemodynamically significant stenosis.
[2019-08-31 15:55] LABS: Absolute Lymphocytes (CBC) 0.8 K/uL (0.7-4.9); Basophils % 0.7 % (0-1.3); Hematocrit 33.5 % (36.0-45.0); Lymphocytes % 8.5 % (15.3-44.8); MPV 9.4 fL (7.6-11.3); Protime INR 0.98; RBC Red Blood Cell Count 3.53 M/uL (3.86-4.86)
[2019-08-31 16:19] LABS: ALT/SGPT 20 U/L (12-78); AST/SGOT 24 U/L (15-37); Albumin 3.8 g/dL (3.4-5.0); Alkaline Phosphatase 77 U/L (45-117); BUN Blood Urea Nitrogen 17 mg/dL (7-18); Bicarbonate 35 mmol/L (21-32); Bilirubin Direct 0.2 mg/dL (0-0.2); Bilirubin Total 0.6 mg/dL (0.2-1.0); Glucose Level 91 mg/dL (74-106); Magnesium 1.6 mg/dL (1.8-2.4); NT PRO-BNP 1317 pg/mL (<450); Protein, Total 8.2 g/dL (6.4-8.2); Sodium Level 127 mmol/L (136-145); Troponin (Emerg Dept Use Only) < 0.02 ng/mL (0.0-0.045)
[2019-08-31] MEDS ORDERED: POTASSIUM 25 MEQ EFFERV TAB ONE (16:39)
[2019-08-31] MEDS ORDERED: KCL 20 MEQ/100 mL IVPB 20 MEQ/100 ML BAG IV ONE (16:39)
[2019-08-31] MEDS ORDERED: NS KCL 20MEQ 1,000 ML IV ONE (16:39)
[2019-08-31] MEDS ORDERED: NA CHLORIDE 0.9% 250 ML ONE (16:51)
[2019-08-31] MEDS ORDERED: IPRATROPIUM BROM 0.5MG/2.5ML ONE (17:15)
[2019-08-31] MEDS ORDERED: METHYLPREDNISOLONE 125 MG INJ ONE (17:15)
[2019-08-31] MEDS ORDERED: LEVALBUTEROL 1.25 MG/3 ML NEB ONE (17:15)
[2019-08-31] MEDS ORDERED: MAGNESIUM SULFATE 1 gm IVPB 1 GM/100 ML BAG IV ONE (17:16)
--- NOTE | 2019-08-31 17:42 | EKG ---
Test Date: 2019-08-31 Test Time: 14:39:21 Events Director: SAMMY MEASUREMENT RESULTS: Intervals: Rate: 71 VT: 180 QRSD: 76 QT: 388 QTc: 421 [place]: P: 87 VT: 180 QRS: -41 T: 66 INTERPRETIVE STATEMENTS: Normal sinus rhythm Possible Left atrial enlargement Left axis deviation Anterior infarct, age undetermined Abnormal ECG Compared to ECG 01/07/2013 13:09:21 Left-axis deviation now present Right-axis deviation no longer present Myocardial infarct finding still present Electronically Signed On 08-31-19 17:41:17 CDT by Charlie Ying
[2019-08-31] MEDS ORDERED: ONDANSETRON 4 MG/2 ML VIAL IV PRN (18:00)
[2019-08-31] MEDS ORDERED: ACETAMINOPHEN 500 MG TAB PO PRN (18:00)
[2019-08-31] MEDS ORDERED: NA CHLORIDE 0.9% 1,000 ML IV SCH (18:00)
[2019-08-31] MEDS ORDERED: ALBUTEROL 2.5 MG/3 ML NEB SOL NEB PRN (18:00)
[2019-08-31] MEDS ORDERED: IPRATROPIUM BROM 0.5MG/2.5ML NEB PRN (18:00)
--- NOTE | 2019-08-31 18:34 | ER ---
Nurse's Notes [facility] Name: Dot Chamorro Age: 79 yrs Sex: Female : 1940 Arrival Date: 08/31/2019 Time: 11:31 Bed 26 Private MD: Migue Majano C Diagnosis: Urinary tract infection, site not specified;Syncope and collapse;Chronic obstructive pulmonary disease, unspecified;Anemia, unspecified;Hypokalemia;Hypomagnesemia;Fever, unspecified Presentation: 08/31 11:34 Presenting complaint: Child states: saw Dr Majano yesterday for dizziness, sv disorientation, lightheaded, vomiting started . Daughter states she has frequent UTI for years and is on abx constantly. Transition of care: patient was not received from another setting of care. Onset of symptoms was August 26, 2019. Risk Assessment: Do you want to hurt yourself or someone else? Patient reports no desire to harm self or others. Initial Sepsis Screen: Does the patient meet any 2 criteria? No. Patient's initial sepsis screen is negative. Does the patient have a suspected source of infection? No. Patient's initial sepsis screen is negative. Care prior to arrival: None. 11:34 Method Of Arrival: Ambulatory sv 11:34 Acuity: CARY 3 sv Triage Assessment: 11:34 General: Appears in no apparent distress. comfortable, Behavior is calm, cooperative, sv appropriate for age. Pain: Denies pain. Neuro: Level of Consciousness is awake, alert, obeys commands, Oriented to person, place, time, situation, Gait is steady. Respiratory: Respiratory effort is even, unlabored, Respiratory pattern is regular, symmetrical. GI: Reports vomiting. : Reports burning with urination, since ongoing for years. Historical: - Allergies: 11:40 PENICILLINS; sv 11:40 Sulfa (Sulfonamide Antibiotics); sv 11:40 Tetanus Vaccines \T\ Toxoid; sv - Home Meds: 11:40 metoprolol tartrate 25 mg Oral tab 1 tab 2 times per day [Active]; furosemide 40 mg sv Oral tab 1 tab once daily [Active]; Ranitidine 1 mg BID Oral [Active]; alendronate sodium-cholecalciferol(vitamin D3) oral 70mg weekly on oral [Active]; aspirin 81 mg Oral chew 1 tab once daily [Active]; calcium-vitamin D3-vitamin K oral oral daily [Active]; nitrofurantoin oral 1 cap BID oral [Active]; - PMHx: 11:40 COPD; Lung Cancer (in remission); UTI; sv - PSHx: 11:40 None; sv - Immunization history:: Flu vaccine is not up to date. - Social history:: Smoking status: unknown. - Family history:: not pertinent. - Ebola Screening: : No symptoms or risks identified at this time. Screenin:50 Abuse screen: Denies threats or abuse. Denies injuries from another. Nutritional mg2 screening: No deficits noted. Tuberculosis screening: No symptoms or risk factors identified. Fall Risk IV access (20 points). Assessment: 15:49 General: Appears in no apparent distress. comfortable, Behavior is calm, cooperative. mg2 Pain: Denies pain. Neuro: Level of Consciousness is awake, alert, obeys commands, Oriented to person, place, time, situation. Cardiovascular: Capillary refill < 3 seconds Patient's skin is warm and dry. Respiratory: Airway is patent Respiratory effort is even, unlabored, Respiratory pattern is regular, symmetrical. GI: Reports vomiting. : Urine is see urine dip. EENT: No signs and/or symptoms were reported regarding the EENT system. Derm: Wound noted right forearm Wound is skin tear. Musculoskeletal: Circulation, motion, and sensation intact. Capillary refill < 3 seconds. 16:17 Reassessment: called Ms Mcintosh from 2nd floor and she said she will call me back. mg2 17:00 Reassessment: Patient appears in no apparent distress at this time. called again the [facility] 2[facility] floor and nurse said that Eben is still busy admitting the new patient from ED. Vital Signs: 11:40 BP 126 / 99; Pulse 61; Resp 16; Temp 98.2; Pulse Ox 97% ; Weight 47.17 kg; Height 5 ft. sv 7 in. (170.18 cm); 15:53 BP 140 / 67; Pulse 70; Resp 18; Temp 98; Pulse Ox 100% on R/A; mg2 16:45 BP 139 / 80; Pulse 69; Resp 18; Pulse Ox 100% on R/A; mg2 17:59 BP 135 / 60; Pulse 71; Resp 17; Temp 98; Pulse Ox 100% on R/A; Pain 0/10; mg2 11:40 Body Mass Index 16.29 (47.17 kg, 170.18 cm) sv ED Course: 11:31 Patient arrived in ED. as 11:32 Migue Majano MD is Private Physician. as 11:38 Triage completed. sv 11:40 Arm band placed on. sv 13:29 Dom Becker, CLAUDIA is Primary Nurse. mg2 13:30 Duke Bruno MD is Attending Physician. reginald 14:07 Urine Culture Sent. jp3 14:32 Migue Majano MD is Hospitalizing Provider. reginald 14:45 EKG done, by technical delivery manager. reviewed by Duke Bruno MD. sm3 14:46 XRAY Chest (1 view) In Process Unspecified. EDMS 14:47 CT Head Brain wo Cont In Process Unspecified. EDMS 15:50 Patient has correct armband on for positive identification. Placed in gown. Cardiac mg2 monitor on. Pulse ox on. NIBP on. Door closed. Warm blanket given. 15:53 No provider procedures requiring assistance completed. Inserted saline lock: 20 gauge mg2 in left forearm, using aseptic technique. Blood collected. 16:21 Notified ED physician of a critical lab result(s). K 2.6. tr5 18:08 Patient admitted, IV remains in place. mg2 Administered Medications: 15:48 Drug: NS 0.9% 500 ml Route: IV; Rate: bolus; Site: left forearm; mg2 16:17 Follow up: Response: No adverse reaction; IV Status: Completed infusion; IV Intake: mg2 500ml 15:48 Drug: Rocephin 1 grams Route: IV; Rate: per protocol; Site: left forearm; mg2 15:57 Follow up: Response: No adverse reaction; IV Status: Completed infusion mg2 17:07 Drug: Potassium Chloride 20 mEq Route: IV; Rate: per protocol; Site: left forearm; mg2 18:53 Follow up: Response: No adverse reaction; IV Status: Infusion continued upon admission mg2 17:07 Drug: Potassium Effervescent Tablet 50 mEq Route: PO; mg2 18:00 Follow up: Response: No adverse reaction mg2 17:08 Drug: NS 0.9% with KCl 20 mEq/L 1000 ml Route: IV; Rate: 125 ml/hr; Site: left forearm; mg2 18:45 Follow up: Response: No adverse reaction; IV Status: Infusion continued upon admission; mg2 IV Intake: 200ml 17:28 Drug: Xopenex 2.5 mg Route: Inhalation; mg2 17:28 Drug: AtroVENT Aerosol 0.5 mg Route: Inhalation; mg2 17:28 Drug: Magnesium Sulfate 1 grams Route: IVPB; Infused Over: 1 hrs; Site: left forearm; mg2 18:13 Follow up: IV Status: Completed infusion mg2 17:29 Drug: SOLU-Medrol 125 mg Route: IVP; Site: left forearm; mg2 18:17 Follow up: Response: No adverse reaction mg2 Intake: 16:17 IV: 500ml; Total: 500ml. mg2 18:45 IV: 200ml; Total: 700ml. mg2 Outcome: 14:33 Decision to Hospitalize by Provider. reginald 18:08 Admitted to Med/surg accompanied by tech, via wheelchair, room 202, with chart, Report mg2 called to CLAUDIA Garcia 18:08 Condition: stable 18:08 Instructed on the need for admit, Demonstrated understanding of instructions. 18:33 Patient left the ED. mg2 Signatures: Dispatcher [facility] Dayna Tabares RN RN sv Anderson, Corey, MD MD cha Martinez, Amelia as Gardose, Michele, RN RN mg2 Carol Lacey3 Eben Martinez jp3 Chase Nieves RN RN tr5 Corrections: (The following items were deleted from the chart) 11:40 11:34 Acuity: CARY 2 [facility]
[2019-08-31 21:00] LABS: Potassium 2.6 mmol/L (3.5-5.1)
[2019-08-31] MEDS: FAMOTIDINE 20 MG/2 ML VIAL IV SCH (21:49)
[2019-08-31 22:04] VITALS: BMI 16.2
[2019-09-01] MEDS ORDERED: METHYLPREDNISOLONE 40 MG INJ IV SCH (01:00)
--- NOTE | 2019-09-01 05:14 | HP ---
Date of Admission: 08/31/2019 Chief Complaint: Nausea, vomiting, chills. History Of Present Illness: An 79-year-old female patient, who called me over the weekend requesting antibiotic for urinary tract infection, and she was started on nitrofurantoin. Yesterday, patient came into office with her daughter and reported that for last 6 years, she has intermittent spells where she feels like having chills, feels like she might actually faint and she feels dizzy during that time, and she has trouble focusing, feeling weak, tired, somewhat nauseated and confused. This spells happen randomly and today while her daughter was taking her to [facility], while she was on the road with her daughter in the car, all of a sudden she had these spells with nausea, vomiting , some tingling sensation in her head and chills type of sensation and trouble with her eyes as she described trouble focusing and the eyes, the way she describes, as jumping. Her daughter contacted my office. She was asked to come to the emergency room. After she was evaluated, she was admitted to the hospital. I saw her in the emergency room, and the patient's daughter was present with her at bedside. Allergies: TO PENICILLIN, DETAILS UNKNOWN; SULFA, DETAILS UNKNOWN. Medications: List reviewed. 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 Constitutional: As mentioned above. GI: As mentioned above. All other systems reviewed and negative. Past Medical History: Significant for COPD, lung cancer status post radiation therapy in 2017, hypertension, hyperlipidemia, peripheral vascular disease, leg edema, chronic kidney disease, osteoarthritis, anxiety, osteoporosis. Past Surgical History: Cataract surgery, tonsillectomy. Family History: Father; Alzheimer disease. Mother also had Alzheimer disease. Sister; Alzheimer disease and lung cancer. Social History: Prior history of smoking, not at present time. Use of alcohol ; patient drinks 1 alcoholic drink daily. Physical Examination: Vital Signs: Weight 104 pounds, height 69 inches. Temperature 98.2, pulse 61, respiratory rate 16, blood pressure 126/99. General: Awake, alert, oriented, not in distress. HEENT: Head atraumatic, normocephalic. Conjunctivae nonerythematous. Sclerae white. Mouth, no thrush or edema noted. Ears/Nose, no mass, lesion, discharge noted. Neck: Supple. No JVD, lymph nodes, bruit, thyromegaly noted. Lungs: Bilateral good equal air entry. Clear to auscultation. No rhonchi. No rales. Heart: Normal heart sounds, no murmur or gallop. Abdomen: Soft, bowel sounds normal. No guarding, rigidity, tenderness, mass, hepatosplenomegaly, distention, or bruit noted. Extremities: No leg edema. No calf tenderness. Skin: No rash, ulcer, cellulitis. Lymphatics: No lymph node enlargement in neck, supraclavicular, infraclavicular region. Neuro: No focal neurological deficit. Chest: Unremarkable. External Genitalia: Deferred. Rectal: Deferred. Laboratory Data: White count 9.8, hemoglobin 11.6, platelets 241. Sodium 127, potassium 2.6, chloride 85, bicarb 35, BUN 70, creatinine 1.18, glucose 91, phosphorus 2.7. Liver function tests unremarkable. Magnesium 1.6. Troponin less than 0.02. Urinalysis; trace esterase, 10-20 wbc's, bacteria 20-50. Impression: 1. Hyponatremia. 2. Hypokalemia. 3. Hypomagnesemia. 4. Anemia. 5. Lung cancer. 6. Urinary tract infection. 7. Chronic obstructive pulmonary disease. 8. Hypertension. 9. Hyperlipidemia. 10. Peripheral vascular disease. 11. Leg edema. Plan: Admit patient to hospital for further evaluation and management of this problem. The patient is appropriate for inpatient and is expected to spend 2 midnights in hospital. We will replace her electrolytes per protocol, start IV antibiotics, repeat blood work tomorrow morning. We will get MRI brain and an EEG tomorrow, and consult Dr. Maxwell. I have also advised her to follow up with the winch truck operator on outpatient basis, and continue home medications per order. Details of plan of treatment discussed with the patient. EMILY/ROSELIA Voice ID: [id number]
[2019-09-01 06:33] LABS: Magnesium 2.1 mg/dL (1.8-2.4); Potassium 3.7 mmol/L (3.5-5.1)
--- NOTE | 2019-09-01 06:42 | RAD REPORT ---
EXAM DESCRIPTION: RAD - Chest Single View - 09/01/2019 5:59 am CLINICAL HISTORY: Chest Pain Chest pain. COMPARISON: Chest Single View dated 08/31/2019; Chest Pa And Lat (2 Views) dated 01/05/2019; Chest Pa And Lat (2 Views) dated 02/23/2018; Chest Single View dated 03/03/2017 FINDINGS: Portable technique limits examination quality. Emphysematous changes are present throughout the lungs. Poorly defined spiculated density in the righ t apex is unchanged. The heart is normal in size. Mild dextroscoliosis of the thoracic spine. IMPRESSION: Stable chest since 08/31/2019.
[2019-09-01 06:45] LABS: Absolute Lymphocytes (CBC) 0.5 K/uL (0.7-4.9); Basophils % 0.9 % (0-1.3); Hematocrit 26.7 % (36.0-45.0); Lymphocytes % 7.3 % (15.3-44.8); MPV 10.3 fL (7.6-11.3); RBC Red Blood Cell Count 2.85 M/uL (3.86-4.86)
[2019-09-01 08:13] LABS: Blood Morphology Comment NOT SEEN (NOT SEEN); Platelet Estimate ADEQ; Platelets, Giant FEW
[2019-09-01] MEDS: FAMOTIDINE 20 MG/2 ML VIAL IV SCH ×2 (08:15→20:16)
[2019-09-01] MEDS: ASPIRIN EC 81 MG TAB PO SCH (08:15)
--- NOTE | 2019-09-01 09:13 | EKG ---
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
--- NOTE | 2019-09-01 10:58 | ECHO ---
HEIGHT: 5 ft 7 in WEIGHT: 104 lb 0 oz DATE OF STUDY: 09/01/[address]: [facility] MD 2-DIMENSIONAL: YES M.MODE: YES DOPPLER: YES COLOR FLOW: YES TDS: NO PORTABLE: NO DEFINITY: NO BUBBLE STUDY: NO DIAGNOSIS: SYNCOPE CARDIAC HISTORY: CATHERIZATION: NO SURGERY: NO PROSTHETIC VALVE: NO PACEMAKER: NO MEASUREMENTS (cm) DIASTOLIC (NORMALS) SYSTOLIC (NORMALS) IVSd 0.6 (0.6-1.2) LA Diam 2.7 (1.9-4.0) LVEF 73% LVIDd 4.0 (3.5-5.7) LVIDs 2.3 (2.0-3.5) %FS 42% LVPWd 0.6 (0.6-1.2) Ao Diam 2.5 (2.0-3.7) 2 DIMENSIONAL ASSESSMENT: RIGHT ATRIUM: NORMAL LEFT ATRIUM: NORMAL RIGHT VENTRICLE: NORMAL LEFT VENTRICLE: NORMAL TRICUSPID VALVE: NORMAL MITRAL VALVE: NORMAL PULMONIC VALVE: NORMAL AORTIC VALVE: NORMAL PERICARDIAL EFFUSION: NONE AORTIC ROOT: NORMAL LEFT VENTRICULAR WALL MOTION: NORMAL. DOPPLER/COLOR FLOW: MILD TRICUSPID REGURGITATION. NORMAL RIGHT VENTRICULAR SYSTOLIC PRESSURE. COMMENTS: NORMAL 2D ECHO. MILD TRICUSPID REGURGITATION. NORMAL RIGHT VENTRICULAR SYSTOLIC PRESSURE. TECHNOLOGIST: ADELINE WYATT
--- NOTE | 2019-09-01 13:28 | RAD REPORT ---
EXAM DESCRIPTION: MRI - Brain Wo Cont - 09/01/2019 1:08 pm CLINICAL HISTORY: confusion Headache, drowsiness. COMPARISON: Head Brain Wo Cont dated 08/31/2019; MRI BRAIN WITHOUT CONTRAST dated 01/08/2013; HEAD BRA IN W O CONTRAST dated 01/07/2013 TECHNIQUE: Multi-sequence, multiplanar MR imaging of the brain was performed without contrast. FINDINGS: No intracranial hemorrhage, hydrocephalus or extra-axial fluid collections.Mild brain atro phy is present with mild periventricular and deep white matter chronic microvascular ischemic changes . No edema or shift of midline structures. No findings to suspect brain mass. DWI is negative for acu te CVA. Midline structures are normally formed. The paranasal sinuses are clear. Trace fluid is seen in both mastoid air cells. IMPRESSION: Mild brain atrophy and chronic microvascular ischemic changes. Negative for acute CVA or other acute intracranial abnormality.
[2019-09-01] MEDS ORDERED: ENSURE PUDDING 4 OZ CUP PO SCH (17:00)
[2019-09-01] MEDS: ENSURE PUDDING 4 OZ CUP PO SCH (17:00)
--- NOTE | 2019-09-02 01:40 | PN ---
Date of Progress Note: 09/01/2019 Subjective: Patient was seen this morning for followup. She was feeling better than yesterday. Denied any new complaints. Objective: Vital Signs: Reviewed. HEENT: Examination unremarkable. Lungs: Clear to auscultation. Heart: Heart sounds normal. Abdomen: Soft. Bowel sounds normal. No guarding, rigidity, tenderness, distention. Extremities: No leg edema. Laboratory Data: White count 7.4, hemoglobin 9.2, platelets 206. Sodium 133, potassium 3.7, chloride 96, bicarb 33, BUN 16, creatinine 0.97. Impression: 1. . 2. Hyponatremia. 3. Rule out seizure. 4. Chronic obstructive pulmonary disease. 5. Anemia. Plan: We will continue current medication. Discontinue IV fluid. Echocardiogram done today was unremarkable with normal ejection fraction. MRI of the brain was negative for any acute stroke type of finding. EEG was done, result pending and neurology consultation is pending. Depending on recommendation from neurologist, we will decide about further plan of treatment including discharge. EMILY/MODL Voice ID: [id number] Report ID: [id number] ZOYA
[2019-09-02] MEDS: FAMOTIDINE 20 MG/2 ML VIAL IV SCH (08:30)
[2019-09-02] MEDS: ASPIRIN EC 81 MG TAB PO SCH (08:30)
[2019-09-02] MEDS: ENSURE PUDDING 4 OZ CUP PO SCH (08:31)
[2019-09-02 08:36] VITALS: O2SAT 94
[2019-09-02 09:43] VITALS: BP 119/56; TEMP 98
--- NOTE | 2019-09-02 23:38 | CON ---
Reason For Consultation: Consultation called by Dr. Majano because of altered mental status. History Of Present Illness: Ms. Chamorro is an 79-year-old right-handed patient who comes i [facility] with nausea, vomiting, chills, and some confusion. The history is obtained f rom the patient's family who are in the room. Per the patient's daughter, she has had several years of intermittent episodes of near fainting and may be associated with fevers and chills and difficulty with communication and disorientation. There appears to be no clear precipitating factors. Some ma y be apparently associated with urinary tract infections. The patient had such a similar event and c oleg to the hospital after contacting her primary care physician, Dr. Majano. She did not have any samantha c or clonic activity, but the eyes were described as jumping and environment was moving around. Her blood work revealed hypokalemia of 2.6 and slight hyponatremia of 127 and the magnesium was also low at 1.6. However, brain MRI did not show any acute ischemic or hemorrhagic change. She had mild smal l-vessel ischemic disease. Echocardiogram essentially unremarkable with an ejection fraction of 72%. Her urinalysis did show 20 to 50 bacteria with 5 to 10 epithelial cells and 10 to 20 white cells. There was a trace of esterase, but the Microbiology did not reveal a specific bacteria, just mixed fl ora. The patient did receive replacement of electrolytes and at the time of my evaluation, she was b ack to her normal self with family in the room, communicating appropriately being aware of hers situa tion, her place, her person and following all commands appropriately. Past Medical History: Includes chronic obstructive pulmonary disease, lung cancer with radiation, hy pertension, dyslipidemia, peripheral vascular disease, reported chronic kidney disease, osteoporosis, and arthritis. Surgical History: Tonsillectomy, cataract surgery. Family History: Positive for Alzheimer disease in both parents and a sister with Alzheimer disease a nd lung cancer. Social History: No recent history of smoking but some regular alcohol consumption on a daily basis. Medications: Aspirin 81 mg daily, Pepcid 20 mg daily. She did receive Rocephin for her urinary trac t infection. Review of Systems: As indicated above, intermittent episodes of some dizziness, confusion, but no fevers or chills, myal gias, arthralgias. No nausea or vomiting. The rest of the 10 point systems review was negative. Physical Examination: Vital Signs: Blood pressure 119/56, pulse 73, respiratory rate 18, temperature 98.0, oxygen saturati on 96% on room air. General: Ms. Chamorro is resting comfortably in bed. She is in no acute distress. HEENT: She is normocephalic, atraumatic. Sclerae anicteric. Oropharynx is pink and moist. Neck: Supple. Chest: Clear. Heart: Regular. Extremities: Show no edema, cyanosis, or clubbing. Neurological: She is alert and oriented to person, place, and situation. She follows all commands a ppropriately. Cranial nerves 2 through 12 reveal no deficits. On motor examination, she has normal bulk and tone in the upper and lower extremities. No focal deficits, 5/5 strength proximally and dis tally. Sensory examination intact to light touch, pinprick, temperature in the arms and legs. Coord ination intact in upper and lower extremities. Reflexes 1 to 2+ and symmetric in the upper and lower extremities. Gait, she has good stance, stride, and arm swing. Assessment: Ms. Chamorro is an 79-year-old patient with paroxysmal episodes of confusion. She did chin ve marked hypokalemia and hypomagnesemia, which may be potential contributing factors. In addition, a urinary tract infection. However, her differential diagnosis should still include transient ischem ic attacks versus paroxysmal abnormal epileptiform discharges, which may be producing her symptoms. Plan: 1.Once discharge, the patient should be at home with family members to reduce her risk of making a p oor decision and resulting in a fall and injury. She should have Home Health for physical and occupa tional therapy. 2.She should be followed with repeat potassium level within 3 or 4 days of discharge and replacement per Dr. Majano. 3.She may follow up in Dr. Maxwell's office if events recur for possible event characterization by ambulatory video-EEG monitoring study. Patient may be discharged home today. SANJEEV/ROSELIA Voice ID: [id number] Report ID: [id number]
--- NOTE | 2019-09-03 05:30 | DS ---
Date of Discharge: 09/02/2019 Disposition: Discharged to go home. Physical Examination: HEENT: Unremarkable. Lungs: Clear to auscultation. Heart: Heart sounds normal. Abdomen: Soft. Bowel sounds normal. No guarding, rigidity, tenderness, or distention. Extremities: No leg edema. Discharge Medications And Instructions: Continue prior home medication, except lower furosemide dose 40 mg, patient to take half a tablet by mouth daily as needed for leg swelling. Follow up at my office next week on Friday or Friday. Follow up with Dr. Maxwell as per his recommendation. Laboratory Data: Initial white count 9.8, hemoglobin 9.6, platelets 241. Day after admission, white count 7.4, hemoglobin 9.2, platelets 206. Initial sodium 127, potassium 2.6; and day after admissio n, sodium 133, potassium 3.7. Initial magnesium was 1.6, repeat magnesium after correction was 2.1. Cardiac enzymes were negative. Hospital Course: 79-year-old female patient, who was admitted to the hospital with nausea, vomiting, chills. Please see dictated H and P for more information. After patient was evaluated in emergency room, she was admitted to the hospital. She was given IV fluid and neurology consultation was reque sted from Dr. Maxwell, who saw her yesterday evening. Her electrolytes were abnormal, which was low sodium, low potassium, low magnesium. All the electrolytes were corrected. CAT scan of the head wa s negative done in the emergency room for any acute intracranial changes. MRI of the brain was negat eliseo for any acute changes. EEG was done, result pending. Carotid Doppler showed some mild plaquing, no hemodynamically significant stenotic lesion. Echocardiogram shows normal ejection fraction, unre markable echocardiogram. Dr. Maxwell has not suggested any other intervention at this point. Medic ally, she is stable for discharge and I will see her at office. Final Diagnoses: 1.Hyponatremia. 2.Hypokalemia. 3.Hypomagnesemia. 4.Anemia. 5.Leg edema. 6.Lung cancer. 7.Urinary tract infection. 8.Chronic obstructive pulmonary disease. 9.Hypertension. 10.Hyperlipidemia. 11.Peripheral vascular disease. EMILY/MODL Voice ID: [id number] Report ID: [id number]
--- NOTE | 2019-09-03 13:27 | EEG ---
CHART: [id number] TEST ID#: [id number] DATE OF STUDY: 09/01/19 THE EEG WAS RECORDED PORTABLE IN THE PATIENTS ROOM ON A 17 CHANNEL MACHINE. ELECTRODES WERE APPLIED IN THE USUAL MANNER USING THE INTERNATIONAL 10-20 SYSTEM. THE WAKING BACKGROUND RHYTHM IN THIS RECORD CONSISTS OF VERY WELL DEVELOPED AND WELL ORGANIZED WAVES OF 9.5 HZ., MAXIMAL IN THE POSTERIOR HEAD REGIONS WHICH ATTENUATE NORMALLY WITH EYE OPENING. LOW-VOLTAGE 18-22 HZ ACTIVITY IS EXPRESSED IN THE FRONTAL REGIONS. THERE ARE NO FOCAL OR LATERALIZING FEATURES. NO EPILEPTIFORM ACTIVITY APPEARS. SLEEP DID NOT OCCUR. HYPERVENTILATION WAS NOT PREFORMED. PHOTIC STIMULATION PRODUCED GOOD DRIVING BILATERALLY. IMPRESSION: NORMAL EEG FOR THE AGE OF THE PATIENT IN A WAKE STATE.
== END 2019-09-02 09:28 | disposition home or self-care (01) ==
LOC: ER 11:29 → ERHOLD 14:36 → INTOOBSV 14:36 → 2ND 18:01
PROVIDERS: ADMIT Internal Medicine; ATTEND Internal Medicine
DX: E87.1 Hypo-osmolality and hyponatremia (principal); E87.6 Hypokalemia; E83.42 Hypomagnesemia; J44.9 Chronic obstructive pulmonary disease, unspecified; C34.90 Malignant neoplasm of unspecified part of unspecified bronchus or lung; I12.9 Hypertensive chronic kidney disease with stage 1 through stage 4 chronic kidney disease, or unspecified chronic kidney disease; N18.9 Chronic kidney disease, unspecified; M19.90 Unspecified osteoarthritis, unspecified site; F41.9 Anxiety disorder, unspecified; M81.0 Age-related osteoporosis without current pathological fracture; Z87.891 Personal history of nicotine dependence; D64.9 Anemia, unspecified; I73.9 Peripheral vascular disease, unspecified; R60.0 Localized edema; N39.0 Urinary tract infection, site not specified
CPT/HCPCS: 96365; 96368; 95816; 93005 ×2; 93306; 87088; 85025 ×2; 87086; 80048 ×2; 36415; 83735 ×2; 84100; 85610; 80076; 84484 ×3; 83880 ×2; 70450; 71045 ×2; 93880; 70551; 94760 ×2; 96375; 99285; 96366; J3475; J0696; J7030 ×2; J7040; J2930; J2405; J2920; G0378 ×4; 81003; 81015